=== PATIENT | female | born 1980 | race American Indian/Alaskan Native ===

== ENCOUNTER 2016-08-09 00:27 | Emergency (ER) | payer MEDICAID ==
[2016-08-09 00:58] VITALS: BP 118/48; PULSE 102; RESP 16; TEMP 98.5; O2SAT 99
[2016-08-09] MEDS ORDERED: Acetaminophen 650mg/20.3ml solution UD PO ONE (01:14)
--- NOTE | 2016-08-09 01:26 | ED PDOC ---
HPI: CCC, URI, Sore Throat Time Seen by Provider: 08/09/16 00:38 Chief Complaint (Nursing): Cough, Cold, Congestion Chief Complaint (Provider): Cough and Congestion History Per: Patient History/Exam Limitations: no limitations Onset/Duration Of Symptoms: Persistent, Other (x2 weeks) Current Symptoms Are (Timing): Still Present Location Of Pain: denies: Throat, Headache Associated Symptoms: Cough, Nasal Congestion, Other (sinus pressure). denies: Fever Ear Symptoms: Bilateral: None Additional Complaint(s): 36 year old female presents to ED with complaints of cough, congestion, and sinus pressure x2 weeks and has no past medical history. (-) fever, hemoptysis, headache, or sore throat. Patient states that she completed a course of Amoxicillin x1 week ago and believes that her symptoms are worsening. Notes that she is currently taking OTC Theraflu. PCP: Quoc Herrmann Past Medical History Reviewed: Historical Data, Nursing Documentation, Vital Signs Vital Signs: Last Vital Signs Temp 98.5 F 08/09/16 00:55 Pulse 102 H 08/09/16 00:55 Resp 16 08/09/16 00:55 BP 118/48 L 08/09/16 00:55 Pulse Ox 99 08/09/16 00:55 - Medical History PMH: No Chronic Diseases - Surgical History Surgical History: No Surg Hx - Social History Current smoker - smoking cessation education provided: Yes Ex-Smoker (has not smoked in the last 12 months): No Drugs: Denies - Home Medications Home Medications: Ambulatory Orders Medication Instructions Recorded Guaifenesin/Pseudoephedrne HCl 1 tab PO DAILY PRN #30 ter 07/11/15 [Mucinex D 600 mg-60 mg] Promethazine HCl/Codeine 5 ml PO HS #80 ml 07/11/15 [Prometh-Codein 6.25-10 mg/5 ml] Azithromycin [Zithromax] 250 mg PO DAILY #6 tab 08/09/16 Fluticasone Nasal [Flonase] 1 actuation NS BID #1 spr 08/09/16 Guaifenesin/Pseudoephedrne HCl 1 each PO BID PRN #12 tab.er.12h 08/09/16 [Mucinex D ER 600-60 mg Tablet] - Allergies Allergies/Adverse Reactions: Allergies Allergy/AdvReac Type Severity Reaction Status Date / Time No Known Allergies Allergy Verified 07/11/15 04:09 Review of Systems ROS Statement: Except As Marked, All Systems Reviewed And Found Negative Constitutional: Negative for: Fever ENT: Positive for: Nose Congestion, Other (Sinus pressure). Negative for: Throat Pain Respiratory: Positive for: Cough. Negative for: Hemoptysis Neurological: Negative for: Headache Physical Exam - Reviewed Nursing Documentation Reviewed: Yes Vital Signs Reviewed: Yes - Physical Exam Appears: Positive for: Non-toxic, No Acute Distress Skin: Positive for: Normal Color, Warm, Dry Eye Exam: Positive for: Normal appearance ENT: Positive for: Pharynx Is (unremarkable). Negative for: Normal ENT Inspection (Bilateral boggy turbinates with copious secretions) Neck: Positive for: Normal Cardiovascular/Chest: Positive for: Regular Rate, Rhythm. Negative for: Murmur Respiratory: Positive for: Normal Breath Sounds. Negative for: Respiratory Distress Extremity: Positive for: Normal ROM. Negative for: Deformity Neurologic/Psych: Positive for: Alert, Oriented. Negative for: Motor/Sensory Deficits - ECG ECG: Positive for: Interpreted By Me, Viewed By Me ECG Rhythm: Positive for: Sinus Tachycardia Interpretation Of Abn EKG: No flutter. Disagree with computer reading. Rate: 102 O2 Sat by Pulse Oximetry: 99 (RA) Pulse Ox Interpretation: Normal Medical Decision Making Medical Decision Makin Initial plan * Pseudoephedrine 30mg PO * Acetaminophen 650mg PO * Re-eval Patient requests a different round of antibiotics. Provider has explained that this is likely not going to be helpful. Given cough, will do a [id number] prescription. If symptoms persist, patient will use Azithromycin prescription. 0121 Upon re-evaluation, patient is feeling much better and is stable for discharge. Patient is medically stable and ready for discharge. Counseling has been provided and patient is in agreement. Return if symptoms persist or acutely worsen. Scribe Attestation: Documented by Mary Germain acting as a scribe for Thomas Aguilar DO. Scribe Attestation: All medical record entries made by the Scribe were at my direction and personally dictated by me. I have reviewed the chart and agree that the record accurately reflects my personal performance of the history, physical exam, medical decision making, and the department course for this patient. I have also personally directed, reviewed, and agree with the discharge instructions and disposition. Disposition - Clinical Impression Clinical Impression: Sinus congestion, Cough Counseled Patient/Family Regarding: Studies Performed - Disposition Referrals: Curtis Apple MD [Staff Provider] - Quoc Herrmann MD [Primary Care Provider] - Disposition: Routine/Home Disposition Time: 01:21 Condition: STABLE Additional Instructions: See ENT specialist if symptoms persist. Return to ER for any new or worsening symptoms. Prescriptions: Fluticasone Nasal [Flonase] 1 actuation NS BID #1 spr Guaifenesin/Pseudoephedrne HCl [Mucinex D ER 600-60 mg Tablet] 1 each PO BID PRN #12 tab.er.12h PRN Reason: Cough Azithromycin [Zithromax] 250 mg PO DAILY #6 tab Instructions: Rhinosinusitis (ED), Acute Cough (ED)
== END 2016-08-09 02:11 | disposition home or self-care (01) ==
LOC: H.ER 00:27
DX: R09.81 Nasal congestion (principal)

== ENCOUNTER 2017-05-17 22:39 | Emergency (ER) | payer MEDICAID ==
[2017-05-17 22:42] VITALS: BMI 40.2
--- NOTE | 2017-05-18 00:39 | ED PDOC ---
Lower Extremity Pain/Injury Time Seen by Provider: 05/17/17 22:59 Chief Complaint (Nursing): Lower Extremity Problem/Injury Chief Complaint (Provider): LE extremity History Per: Patient History/Exam Limitations: no limitations Additional Complaint(s): 36 F in ED for eval of left knee injury sustained today after slipping on black ice now in pain unable to bear much weight c/o of pain to lateral side of leg no calf pain no numbness or tingling. Past Medical History Reviewed: Historical Data, Nursing Documentation, Vital Signs Vital Signs: Last Vital Signs Temp 97.6 F 05/17/17 22:40 Pulse 99 H 05/17/17 22:40 Resp 16 05/17/17 22:40 BP 111/77 05/17/17 22:40 Pulse Ox 100 05/17/17 22:40 - Medical History PMH: Rheumatoid Arthritis - Family History Family History: States: No Known Family Hx - Home Medications Home Medications: Ambulatory Orders Medication Instructions Recorded Guaifenesin/Pseudoephedrne HCl 1 tab PO DAILY PRN #30 ter 07/11/15 [Mucinex D 600 mg-60 mg] Promethazine HCl/Codeine 5 ml PO HS #80 ml 07/11/15 [Prometh-Codein 6.25-10 mg/5 ml] Azithromycin [Zithromax] 250 mg PO DAILY #6 tab 08/09/16 Fluticasone Nasal [Flonase] 1 actuation NS BID #1 spr 08/09/16 Guaifenesin/Pseudoephedrne HCl 1 each PO BID PRN #12 tab.er.12h 08/09/16 [Mucinex D ER 600-60 mg Tablet] Acetaminophen [Acetaminophen Extra 2 tab PO Q4 PRN #24 tablet 03/17/17 Strength] Albuterol HFA [Ventolin HFA 90 2 puff IH [id number] PRN #1 inhaler 03/17/17 mcg/actuation (8 g)] Promethazine/Codeine 5 ml PO Q12 PRN #100 ml 03/17/17 [Codeine/Promethazine 10 MG/5 Ml-6.25 MG/5 Ml] Pseudoephedrine [Sudafed Tab] 60 mg PO Q6 PRN #24 tab 03/17/17 Azithromycin [Zithromax] 250 mg PO DAILY #6 tab 03/23/17 Fluticasone Propionate [Flonase] 2 spr NS DAILY PRN #1 bottle 03/23/17 Ibuprofen [Motrin] 400 mg PO Q6 #30 tab 05/18/17 Tramadol HCl [Ultram] 50 mg PO Q6 #15 tab 05/18/17 - Allergies Allergies/Adverse Reactions: Allergies Allergy/AdvReac Type Severity Reaction Status Date / Time No Known Allergies Allergy Verified 07/11/15 04:09 Wells Criteria for PE - Wells Criteria for Pulmonary Embolism Clinical Signs and Symptoms of DVT: No P.E is #1 Diagnosis, or Equally Likely: No Heart Rate >100: No Immobilization at least 3 days;Surgery previous 4 weeks: No Previous, objectively diagnosed PE or DVT: No Hemoptysis: No Malignancy w/treatment within 6 months, or palliative: No Total Score: 0 Review of Systems ROS Statement: Except As Marked, All Systems Reviewed And Found Negative Musculoskeletal: Positive for: Leg Pain Physical Exam - Reviewed Nursing Documentation Reviewed: Yes Vital Signs Reviewed: Yes - Physical Exam Appears: Positive for: Well, Non-toxic, No Acute Distress Skin: Positive for: Normal Color, Warm, DRY Cardiovascular/Chest: Positive for: Regular Rate, Rhythm Respiratory: Positive for: CNT, Normal Breath Sounds Extremity: Positive for: Other (left knee: ant/post test negative. mcurray test negative. tenderness noted on palpation nuevoasc intact. (-) anjum test. ) Neurologic/Psych: Positive for: Alert, Oriented - ECG O2 Sat by Pulse Oximetry: 100 - Radiology X-Ray: Interpreted by Me X-Ray Interpretation: No Acute Disease Medical Decision Making Medical Decision Making: PT will get Knee immobilizer and crutches and f/[facility] orthopedic motrin as need will be arturo ultram in ED. Disposition - Clinical Impression Clinical Impression: Knee injury - Patient ED Disposition Is Patient to be Admitted: No Counseled Patient/Family Regarding: Studies Performed, Diagnosis, Need For Followup, Rx Given - Disposition Referrals: Glendy Pulliam MD [Staff Provider] - Disposition: Routine/Home Disposition Time: 00:47 Condition: STABLE Prescriptions: Ibuprofen [Motrin] 400 mg PO Q6 #30 tab Tramadol HCl [Ultram] 50 mg PO Q6 #15 tab Instructions: Knee Immobilizer (ED)
[2017-05-18 01:23] VITALS: BP 142/72; PULSE 78; RESP 18; TEMP 98.1; O2SAT 97
--- NOTE | 2017-05-18 08:33 | RAD ---
PROCEDURE: Left Knee Radiographs. HISTORY: Pain. COMPARISON: None. FINDINGS: BONES: Normal. No fracture. JOINTS: Very mild degenerative changes. No loose body is seen. Proximal fibula is intact. Patella appears in normal location. JOINT EFFUSION: No appreciable joint effusion. OTHER FINDINGS: None. IMPRESSION: No fracture. No appreciable joint effusion.
== END 2017-05-18 01:24 | disposition home or self-care (01) ==
LOC: H.ER 22:39
DX: S89.92XA Unspecified injury of left lower leg, initial encounter (principal); W19.XXXA Unspecified fall, initial encounter; Y92.89 Other specified places as the place of occurrence of the external cause; M06.9 Rheumatoid arthritis, unspecified
CPT/HCPCS: 29530; 73562; 81025; 99283; L1830

== ENCOUNTER 2018-06-10 01:40 | Emergency (ER) | payer MEDICAID ==
[2018-06-10 01:40] VITALS: BMI 40.2
--- NOTE | 2018-06-10 02:29 | ED PDOC ---
HPI: Back Time Seen by Provider: 06/10/18 02:04 Chief Complaint (Nursing): Back Pain Chief Complaint (Provider): low back pain History Per: Patient History/Exam Limitations: no limitations Onset/Duration Of Symptoms: Days (3) Current Symptoms Are (Timing): Still Present Exacerbating Factor(s): Turning, Movement Additional Complaint(s): 38 y/o female presents for evaluation of low back pain x 3 days. Patient states pain started while cleaning around the house. Pain worse with movement and laying down. Little improvement with Diclofenac. Denies fever, nausea/vomiting, numbness/weakness lower extremities, bowel/bladder incontinence. Past Medical History Reviewed: Historical Data, Nursing Documentation, Vital Signs Vital Signs: Last Vital Signs Temp 98.0 F 06/10/18 01:56 Pulse 103 H 06/10/18 01:56 Resp 16 06/10/18 01:56 BP 129/87 06/10/18 01:56 Pulse Ox 99 06/10/18 01:56 - Medical History PMH: Arthritis - Surgical History Surgical History: No Surg Hx - Family History Family History: States: No Known Family Hx - Living Arrangements Living Arrangements: With Family - Home Medications Home Medications: Ambulatory Orders Medication Instructions Recorded Guaifenesin/Pseudoephedrne HCl 1 tab PO DAILY PRN #30 ter 07/11/15 [Mucinex D 600 mg-60 mg] Promethazine HCl/Codeine 5 ml PO HS #80 ml 07/11/15 [Prometh-Codein 6.25-10 mg/5 ml] Azithromycin [Zithromax] 250 mg PO DAILY #6 tab 08/09/16 Fluticasone Nasal [Flonase] 1 actuation NS BID #1 spr 08/09/16 Guaifenesin/Pseudoephedrne HCl 1 each PO BID PRN #12 tab.er.12h 08/09/16 [Mucinex D ER 600-60 mg Tablet] Acetaminophen [Acetaminophen Extra 2 tab PO Q4 PRN #24 tablet 03/17/17 Strength] Albuterol HFA [Ventolin HFA 90 2 puff IH [id number] PRN #1 inhaler 03/17/17 mcg/actuation (8 g)] Promethazine/Codeine 5 ml PO Q12 PRN #100 ml 03/17/17 [Codeine/Promethazine 10 MG/5 Ml-6.25 MG/5 Ml] Pseudoephedrine [Sudafed Tab] 60 mg PO Q6 PRN #24 tab 03/17/17 Azithromycin [Zithromax] 250 mg PO DAILY #6 tab 03/23/17 Fluticasone Propionate [Flonase] 2 spr NS DAILY PRN #1 bottle 03/23/17 Ibuprofen [Motrin] 400 mg PO Q6 #30 tab 05/18/17 Tramadol HCl [Ultram] 50 mg PO Q6 #15 tab 05/18/17 Cyclobenzaprine [Cyclobenzaprine 10 mg PO BID PRN #14 tab 06/10/18 HCl] Lidocaine 5% [Lidoderm] 1 patch TOP DAILY #7 patch 06/10/18 - Allergies Allergies/Adverse Reactions: Allergies Allergy/AdvReac Type Severity Reaction Status Date / Time No Known Allergies Allergy Verified 07/11/15 04:09 Review of Systems ROS Statement: Except As Marked, All Systems Reviewed And Found Negative Musculoskeletal: Positive for: Back Pain Physical Exam - Reviewed Nursing Documentation Reviewed: Yes Vital Signs Reviewed: Yes - Physical Exam Appears: Positive for: Well, Non-toxic, No Acute Distress Head Exam: Positive for: ATRAUMATIC, NORMAL INSPECTION, NORMOCEPHALIC Cardiovascular/Chest: Positive for: Regular Rate, Rhythm Respiratory: Positive for: Normal Breath Sounds Back: Positive for: Vertebral Tenderness (lspine tenderness without edema, bony deformity), Muscle Spasm (bilateral lspine paravertebral tenderness). Negative for: L CVA Tenderness, R CVA Tenderness Extremity: Positive for: Normal ROM Neurologic/Psych: Positive for: Alert, Oriented (x3) - ECG O2 Sat by Pulse Oximetry: 99 - Other Rad lspine xray X-Ray: Viewed By Ks X-Ray Interpretation: no acute findings - Progress ED Course And Treament: -lspine xray -Toradol IM -flexeril PO -tramadol PO On re-eval, patient states she is feeling better Patient educated on findings discharged with rx Flexeril, Lidoderm Advised to continue Diclofenac as previously instructed Follow up PMD within 2-3 days Return precautions given Disposition - Clinical Impression Clinical Impression: Low back pain - Patient ED Disposition Is Patient to be Admitted: No Counseled Patient/Family Regarding: Studies Performed, Diagnosis, Need For Followup, Rx Given - Disposition Disposition: Routine/Home Disposition Time: 04:11 Condition: IMPROVED Prescriptions: Cyclobenzaprine [Cyclobenzaprine HCl] 10 mg PO BID PRN #14 tab PRN Reason: Muscle Spasm Lidocaine 5% [Lidoderm] 1 patch TOP DAILY #7 patch Instructions: Low Back Pain in Adults Forms: [facility] (Persian)
[2018-06-10 05:11] VITALS: BP 108/59; PULSE 76; RESP 18; TEMP 99.3; O2SAT 96
--- NOTE | 2018-06-10 11:39 | RAD ---
Date of service: 06/10/2018 PROCEDURE: Radiographs of the Lumbar Spine. HISTORY: Pain. No history of recent/ related trauma provided COMPARISON: No prior. FINDINGS: BONES: Normal alignment. No listhesis. No fracture. DISC SPACES: Unremarkable. OTHER FINDINGS: None. IMPRESSION: Unremarkable radiographs of the lumbar spine.
== END 2018-06-10 05:33 | disposition home or self-care (01) ==
LOC: H.ER 01:40
DX: M54.5 Low back pain (principal)
CPT/HCPCS: 72100; 81025; 96372; 99283; J1885